=== PATIENT | female | born 1995 | race Caucasian/White ===

== ENCOUNTER 2022-12-28 17:32 | Emergency (ER) | payer SELFPAY ==
--- OUTSIDE RECORDS SUMMARY | 2022-12-28 17:35 | XMS REPORT | Continuity of Care Document ---
:1995 Author Organization [facility] t Address [address] [place] [address] [place] [id number] Care Team Providers Name Role Phone Hedy Tran Primary Care Physician Doctor Unassigned, [employer] [facility] Attending Clinician Unavailable Kip Villaseñor DO Attending Clinician HEDY MARSHALL Attending Clinician Unavailable Hedy Tran Attending Clinician Team, [facility] Health Maintenance Attending Clinician Unavailabl e Payers Payer Name Policy Type Policy Number Effective Date Expiration Date S ource Problems Condition Condition Condition Status Onset Resolution Last Treating Co mments Source Name Details Category Date Date Treatment Clinician Date Fungal Fungal Disease Active Univers rash of rash of 6-14 ity of torso torso 00:00: [address] Irregular Irregular Disease Active Uni vers menstrual menstrual 6-13 ity of cycle cycle 00:00: [address] Obesity Obesity Disease Active Univers (BMI (BMI 6-13 ity of 30-39.9) 30-39.9) 00:00: [address] Allergies, Adverse Reactions, Alerts Allergy Allergy Status Severity Reaction(s) Onset Inactive Treating Comm ents Source Name Type Date Date Clinician NO KNOWN Drug Active Univers ALLERGIE Class ity of S [facility] Social History Social Habit Start Date Stop Date Quantity Comments Source Sexual [facility] Social 2019-10-18 2019-10-18 Univers ity of function 00:00:00 00:00:00 [facility] Alcohol intake 2019-05-16 2019-05-16 0 /d University of 00:00:00 00:00:00 [facility] Tobacco use and 2012-09-06 2012-09-06 Smokeless Universit y of exposure 00:00:00 00:00:00 tobacco non-user [facility] Sex Assigned At [birth year] Universit y of 00:00:00 00:00:00 [facility] Smoking Status Start Date Stop Date Source Never smoked tobacco [facility] Medications Ordered Filled Start Stop Current Ordering Indication Dosage Frequency Signature Comments Components Source Medication Medication Date Date Medication? Clinician (SIG) Name Name bromphenira 2019- 2020- No [id number] 5mL Take 5 mL Univers mine-pseudo 05-15 by mouth 4 i ty of ephedrine-D 00:00: 04:59 (four) [place] as M (BROMFED 00 :00 times Medical DM) 2-30-10 daily as Bran ch mg/5 mL needed for syrup Cold symptoms for up to 10 days. bromphenira 2019-2019- No [id number] 5mL Take 5 mL Univers mine-pseudo 05-15 by mouth 4 i ty of ephedrine-D 00:00: 04:59 (four) [place] as M (BROMFED 00 :00 times Medical DM) 2-30-10 daily as Bran ch mg/5 mL needed for syrup Cold symptoms for up to 10 days. oseltamivir 2020- No [id number] 75mg Take 1 Univers (TAMIFLU) 05-15 capsule by ity of 75 mg 00:00: 04:59 mouth 2 [place] capsule 00 :00 (two) Medical times [place] daily for 5 days. oseltamivir 2019-0 2020- No [id number] 75mg Take 1 Univers (TAMIFLU) 05-15-09 capsule by ity of 75 mg 00:00: 04:59 mouth 2 [place] capsule 00 :00 (two) Medical times [place] daily for 5 days. No known No [facility] No known No [facility] No known No Univers medications ity of [facility] No known No Univers medications ity of [facility] Immunizations Ordered Filled Date Status Comments Source Immunization Name Immunization Name TDAP (ADACEL) 2017-07-13 Completed University of VACCINE 00:00:00 [facility] TDAP (ADACEL) 2017-07-13 Completed University of VACCINE 00:00:00 [facility] TDAP (ADACEL) 2017-07-13 Completed University of VACCINE 00:00:00 [facility] TDAP (ADACEL) 2017-07-13 Completed University of VACCINE 00:00:00 [facility] TDAP (ADACEL) 2017-07-13 Completed University of VACCINE 00:00:00 [facility] TDAP (ADACEL) 2017-07-13 Completed University of VACCINE 00:00:00 [facility] Meningococcal 2014-08-14 Completed University of Vaccine 00:00:00 [facility] Meningococcal 2014-08-14 Completed University of Vaccine 00:00:00 [facility] Meningococcal 2014-08-14 Completed University of Vaccine 00:00:00 [facility] Meningococcal 2014-08-14 Completed University of Vaccine 00:00:00 [facility] Meningococcal 2014-08-14 Completed University of Vaccine 00:00:00 [facility] Meningococcal 2014-08-14 Completed University of Vaccine 00:00:00 [facility] HPV 2010-12-25 Completed University of 00:00:00 [facility] Influenza Virus 2010-12-25 Completed Universit y of Vaccine Nasal 00:00:[address] [facility] HPV 2010-12-25 Completed University of 00:00:00 [facility] Influenza Virus 2010-12-25 Completed Universit y of Vaccine Nasal 00:00:[address] [facility] HPV 2010-12-25 Completed University of 00:00:00 [facility] Influenza Virus 2010-12-25 Completed Universit y of Vaccine Nasal 00:00:[address] [facility] HPV 2010-12-25 Completed University of 00:00:00 [facility] Influenza Virus 2010-12-25 Completed Universit y of Vaccine Nasal 00:00:[address] [facility] HPV 2010-12-25 Completed University of 00:00:00 [facility] Influenza Virus 2010-12-25 Completed Universit y of Vaccine Nasal 00:00:[address] [facility] HPV 2010-12-25 Completed University of 00:00:00 [facility] Influenza Virus 2010-12-25 Completed Universit y of Vaccine Nasal 00:00:00 [facility] Branch HPV 2009-09-23 Completed University of 00:00:00 [facility] Branch HPV 2009-09-23 Completed University of 00:00:00 [facility] HPV 2009-09-23 Completed University of 00:00:00 [facility] HPV 2009-09-23 Completed University of 00:00:00 [facility] HPV 2009-09-23 Completed University of 00:00:00 [facility] HPV 2009-09-23 Completed University of 00:00:00 [facility] HPV 2009-06-20 Completed University of 00:00:00 [facility] HPV 2009-06-20 Completed University of 00:00:00 [facility] HPV 2009-06-20 Completed University of 00:00:00 [facility] HPV 2009-06-20 Completed University of 00:00:00 [facility] HPV 2009-06-20 Completed University of 00:00:00 [facility] HPV 2009-06-20 Completed University of 00:00:00 [facility] H1n1 Vaccine 2009-02-26 Completed University o f 00:00:00 [facility] H1n1 Vaccine 2009-02-26 Completed University o f 00:00:00 [facility] H1n1 Vaccine 2009-02-26 Completed University o f 00:00:00 [facility] H1n1 Vaccine 2009-02-26 Completed University o f 00:00:00 [facility] H1n1 Vaccine 2009-02-26 Completed University o f 00:00:00 [facility] H1n1 Vaccine 2009-02-26 Completed University o f 00:00:00 [facility] Tdap 2008-07-05 Completed University of 00:00:00 [facility] Varicella 2008-07-05 Completed University of (varivax)(chicken 00:00:00 [place] [facility] pox) Branch Meningococcal 2008-07-05 Completed University of Vaccine 00:00:00 [facility] Tdap 2008-07-05 Completed University of 00:00:00 [facility] Varicella 2008-07-05 Completed University of (varivax)(chicken 00:00:00 [place] [facility] pox) Branch Meningococcal 2008-07-05 Completed University of Vaccine 00:00:00 [facility] Tdap 2008-07-05 Completed University of 00:00:00 [facility] Varicella 2008-07-05 Completed University of (varivax)(chicken 00:00:00 [place] [facility] pox) Branch Meningococcal 2008-07-05 Completed University of Vaccine 00:00:00 [facility] TDAP 2008-07-05 Completed University of 00:00:00 [facility] Varicella 2008-07-05 Completed University of (varivax)(chicken 00:00:00 [place] [facility] pox) Branch Meningococcal 2008-07-05 Completed University of Vaccine 00:00:00 [facility] Tdap 2008-07-05 Completed University of 00:00:00 [facility] Varicella 2008-07-05 Completed University of (varivax)(chicken 00:00:00 [place] [facility] pox) Branch Meningococcal 2008-07-05 Completed University of Vaccine 00:00:00 [facility] Tdap 2008-07-05 Completed University of 00:00:00 [facility] Varicella 2008-07-05 Completed University of (varivax)(chicken 00:00:00 [place] [facility] [place] pox) Branch Meningococcal 2008-07-05 Completed University of Vaccine 00:00:00 [facility] Polio (IPV/OPV) 2001-11-23 Completed Universit y of 00:00:00 [facility] DTAP 2001-11-23 Completed University of 00:00:00 [facility] DTAP 2001-11-23 Completed University of 00:00:00 [facility] MMR 2001-11-23 Completed University of 00:00:00 [facility] Polio (IPV/OPV) 2001-11-23 Completed Universit y of 00:00:00 [facility] DTAP 2001-11-23 Completed University of 00:00:00 [facility] MMR 2001-11-23 Completed University of 00:00:00 [facility] Polio (IPV/OPV) 2001-11-23 Completed Universit y of 00:00:00 [facility] DTAP 2001-11-23 Completed University of 00:00:00 [facility] MMR 2001-11-23 Completed University of 00:00:00 [facility] Polio (IPV/OPV) 2001-11-23 Completed Universit y of 00:00:00 [facility] MMR 2001-11-23 Completed University of 00:00:00 [facility] Polio (IPV/OPV) 2001-11-23 Completed Universit y of 00:00:00 [facility] DTAP 2001-11-23 Completed University of 00:00:00 [facility] MMR 2001-11-23 Completed University of 00:00:00 [facility] Polio (IPV/OPV) 2001-11-23 Completed Universit y of 00:00:00 [facility] DTAP 2001-11-23 Completed University of 00:00:00 [facility] MMR 2001-11-23 Completed University of 00:00:00 [facility] Varicella 2000-10-04 Completed University of (varivax)(chicken 00:00:00 [place] [facility] pox) Branch Varicella 2000-10-04 Completed University of (varivax)(chicken 00:00:00 [place] [facility] pox) Branch Varicella 2000-10-04 Completed University of (varivax)(chicken 00:00:00 [place] [facility] pox) Branch Varicella 2000-10-04 Completed University of (varivax)(chicken 00:00:00 [place] [facility] pox) Branch Varicella 2000-10-04 Completed University of (varivax)(chicken 00:00:00 [place] [facility] pox) Branch Varicella 2000-10-04 Completed University of (varivax)(chicken 00:00:00 [place] [facility] pox) Branch Varicella 1999-07-06 Completed University of (varivax)(chicken 00:00:00 [place] [facility] pox) Branch Varicella 1999-07-06 Completed University of (varivax)(chicken 00:00:00 [place] [facility] pox) Branch Varicella 1999-07-06 Completed University of (varivax)(chicken 00:00:00 [place] [facility] pox) Branch Varicella 1999-07-06 Completed University of (varivax)(chicken 00:00:00 [place] [facility] pox) Branch Varicella 1999-07-06 Completed University of (varivax)(chicken 00:00:00 [place] [facility] pox) Branch Varicella 1999-07-06 Completed University of (varivax)(chicken 00:00:00 [place] [facility] pox) Branch Polio (IPV/OPV) 1998-06-03 Completed Universit y of 00:00:00 [facility] DTAP 1998-06-03 Completed University of 00:00:00 [facility] DTAP 1998-06-03 Completed University of 00:00:00 [place] [facility] HIB 4 Dose Schedule 1998-06-03 Completed Unive rsity of 00:00:00 [place] [facility] MMR 1998-06-03 Completed University of 00:00:00 [place] [facility] Polio (IPV/OPV) 1998-06-03 Completed Universit y of 00:00:00 [place] [facility] DTAP 1998-06-03 Completed University of 00:00:00 [facility] HIB 4 Dose Schedule 1998-06-03 Completed Unive rsity of 00:00:00 [place] [facility] MMR 1998-06-03 Completed University of 00:00:00 [place] [facility] Polio (IPV/OPV) 1998-06-03 Completed Universit y of 00:00:00 [facility] HIB 4 Dose Schedule 1998-06-03 Completed Unive rsity of 00:00:00 [facility] DTAP 1998-06-03 Completed University of 00:00:00 [facility] HIB 4 Dose Schedule 1998-06-03 Completed Unive rsity of 00:00:00 [facility] MMR 1998-06-03 Completed University of 00:00:00 [place] [facility] Polio (IPV/OPV) 1998-06-03 Completed Universit y of 00:00:00 [place] [facility] MMR 1998-06-03 Completed University of 00:00:00 [place] [facility] Polio (IPV/OPV) 1998-06-03 Completed Universit y of 00:00:00 [facility] DTAP 1998-06-03 Completed University of 00:00:00 [facility] HIB 4 Dose Schedule 1998-06-03 Completed Unive rsity of 00:00:00 [facility] MMR 1998-06-03 Completed University of 00:00:00 [place] [facility] Polio (IPV/OPV) 1998-06-03 Completed Universit y of 00:00:00 [place] [facility] DTAP 1998-06-03 Completed University of 00:00:00 [facility] HIB 4 Dose Schedule 1998-06-03 Completed Unive rsity of 00:00:00 [place] [facility] MMR 1998-06-03 Completed University of 00:00:00 [place] [facility] DTAP 1998-02-19 Completed University of 00:00:00 [place] [facility] DTAP 1998-02-19 Completed University of 00:00:00 [facility] HIB 4 Dose Schedule 1998-02-19 Completed Unive rsity of 00:00:00 [place] [facility] Hep B, Adol or Pedi 1998-02-19 Completed Unive rsity of Dosage 00:00:00 [place] [facility] DTAP 1998-02-19 Completed University of 00:00:00 [place] [facility] HIB 4 Dose Schedule 1998-02-19 Completed Unive rsity of 00:00:00 [place] [facility] Hep B, Adol or Pedi 1998-02-19 Completed Unive rsity of Dosage 00:00:00 [place] [facility] HIB 4 Dose Schedule 1998-02-19 Completed Unive rsity of 00:00:00 [place] [facility] DTAP 1998-02-19 Completed University of 00:00:00 [place] [facility] HIB 4 Dose Schedule 1998-02-19 Completed Unive rsity of 00:00:00 [place] [facility] Hep B, Adol or Pedi 1998-02-19 Completed Unive rsity of Dosage 00:00:00 [facility] Hep B, Adol or Pedi 1998-02-19 Completed Unive rsity of Dosage 00:00:00 [facility] DTAP 1998-02-19 Completed University of 00:00:00 [facility] HIB 4 Dose Schedule 1998-02-19 Completed Unive rsity of 00:00:00 [place] [facility] Hep B, Adol or Pedi 1998-02-19 Completed Unive rsity of Dosage 00:00:00 [facility] DTAP 1998-02-19 Completed University of 00:00:00 [facility] HIB 4 Dose Schedule 1998-02-19 Completed Unive rsity of 00:00:00 [facility] Hep B, Adol or Pedi 1998-02-19 Completed Unive rsity of Dosage 00:00:00 [facility] Polio (IPV/OPV) 1997 Completed Universit y of 00:00:00 [facility] DTAP 1997 Completed University of 00:00:00 [place] [facility] DTAP 1997 Completed University of 00:00:00 [place] [facility] HIB 4 Dose Schedule 1997 Completed Unive rsity of 00:00:00 [facility] Polio (IPV/OPV) 1997 Completed Universit y of 00:00:00 [facility] DTAP 1997 Completed University of 00:00:00 [place] [facility] HIB 4 Dose Schedule 1997 Completed Unive rsity of 00:00:00 [facility] HIB 4 Dose Schedule 1997 Completed Unive rsity of 00:00:00 [place] [facility] Polio (IPV/OPV) 1997 Completed Universit y of 00:00:00 [facility] DTAP 1997 Completed University of 00:00:00 [facility] HIB 4 Dose Schedule 1997 Completed Unive rsity of 00:00:00 [facility] Polio (IPV/OPV) 1997 Completed Universit y of 00:00:00 [place] [facility] Polio (IPV/OPV) 1997 Completed Universit y of 00:00:00 [facility] DTAP 1997 Completed University of 00:00:00 [facility] HIB 4 Dose Schedule 1997 Completed Unive rsity of 00:00:00 [facility] Polio (IPV/OPV) 1997 Completed Universit y of 00:00:00 [facility] DTAP 1997 Completed University of 00:00:00 [facility] HIB 4 Dose Schedule 1997 Completed Unive rsity of 00:00:00 [facility] DTAP 1997 Completed University of 00:00:00 [facility] Polio (IPV/OPV) 1997 Completed Universit y of 00:00:00 [facility] DTAP 1997 Completed University of 00:00:00 [facility] HIB 4 Dose Schedule 1997 Completed Unive rsity of 00:00:00 [facility] Hep B, Adol or Pedi 1997 Completed Unive rsity of Dosage 00:00:00 [facility] Polio (IPV/OPV) 1997 Completed Universit y of 00:00:00 [facility] HIB 4 Dose Schedule 1997 Completed Unive rsity of 00:00:00 [facility] DTAP 1997 Completed University of 00:00:00 [facility] HIB 4 Dose Schedule 1997 Completed Unive rsity of 00:00:00 [facility] Hep B, Adol or Pedi 1997 Completed Unive rsity of Dosage 00:00:00 [facility] Polio (IPV/OPV) 1997 Completed Universit y of 00:00:00 [facility] DTAP 1997 Completed University of 00:00:00 [facility] HIB 4 Dose Schedule 1997 Completed Unive rsity of 00:00:00 [facility] Hep B, Adol or Pedi 1997 Completed Unive rsity of Dosage 00:00:00 [facility] Hep B, Adol or Pedi 1997 Completed Unive rsity of Dosage 00:00:00 [facility] Polio (IPV/OPV) 1997 Completed Universit y of 00:00:00 [facility] Polio (IPV/OPV) 1997 Completed Universit y of 00:00:00 [facility] DTAP 1997 Completed University of 00:00:00 [facility] HIB 4 Dose Schedule 1997 Completed Unive rsity of 00:00:00 [facility] Hep B, Adol or Pedi 1997 Completed Unive rsity of Dosage 00:00:00 [facility] Polio (IPV/OPV) 1997 Completed Universit y of 00:00:00 [facility] DTAP 1997 Completed University of 00:00:00 [facility] HIB 4 Dose Schedule 1997 Completed Unive rsity of 00:00:00 [facility] Hep B, Adol or Pedi 1997 Completed Unive rsity of Dosage 00:00:00 [facility] Hep B, Adol or Pedi 1997 Completed Unive rsity of Dosage 00:00:00 [facility] Hep B, Adol or Pedi 1997 Completed Unive rsity of Dosage 00:00:00 [facility] Hep B, Adol or Pedi 1997 Completed Unive rsity of Dosage 00:00:00 [facility] Hep B, Adol or Pedi 1997 Completed Unive rsity of Dosage 00:00:00 [facility] Hep B, Adol or Pedi 1997 Completed Unive rsity of Dosage 00:00:00 [facility] Hep B, Adol or Pedi 1997 Completed Unive rsity of Dosage 00:00:00 [facility] DTAP Unknown Completed University of [facility] DTAP Unknown Completed [facility] DTAP Unknown Completed [facility] DTAP Unknown Completed [facility] DTAP Unknown Completed [facility] HIB 4 Dose Schedule Unknown [facility] D[facility] Unknown Completed [facility] HIB 4 Dose Schedule Unknown [facility] D[facility] Hep B, Adol or Pedi Unknown Completed Unive rsity of Dosage [facility] Hep B, Adol or Pedi Unknown Completed Unive rsity of Dosage [facility] Hep B, Adol or Pedi Unknown Completed Unive rsity [facility] HPV Unknown Completed [facility] HPV Unknown Completed [facility] HPV Unknown Completed [facility] Meningococcal Unknown Completed [facility] Meningococcal Unknown Completed [facility] MMR Unknown Completed [facility] MMR Unknown Completed [facility] Polio (IPV/OPV) Unknown Completed [facility] Polio (IPV/OPV) Unknown Completed [facility] Polio (IPV/OPV) Unknown Completed [facility] Polio (IPV/OPV) Unknown Completed [facility] TDAP Unknown Completed [facility] Varicella Unknown Completed [facility] (varivax)(chicken [place] [facility] pox) Branch Varicella Unknown Completed [facility] (varivax)(chicken [place] [facility] [place] pox) [place] Varicella Unknown Completed [facility] (varivax)(chicken [place] [facility] [place] pox) [place] Influenza Virus Unknown Completed [facility] Vaccine Nasal [facility] H1n1 Vaccine Unknown Completed [facility] TDAP (ADACEL) Unknown Completed [facility] Vital Signs Vital Name Observation Time Observation Value Comments Source Systolic blood 2019-05-16 16:34:00 131 mm[Hg] Univer sity of pressure [facility] Diastolic blood 2019-05-16 16:34:00 86 mm[Hg] Unive rsity of pressure [facility] Heart rate 2019-05-16 16:34:00 110 /min [facility] Body temperature 2019-05-16 16:34:00 36.5 [place] Univ ersity [facility] Body height 2019-05-16 16:34:00 175.3 cm Universi ty [facility] Body weight 2019-05-16 16:34:00 118.842 kg Universi ty [facility] BMI 2019-05-16 16:34:00 38.69 kg/m2 Universi ty [facility] Oxygen saturation in 2019-05-16 16:34:00 94 /min [facility] Arterial blood by [facility] Pulse oximetry [place] Procedures Procedure Date / Time Performed Performing Clinician Vansesa geraldo ASSIGNMENT OF BENEFITS 2019-05-16 16:24:58 Doctor Unassigned, Yamel [facility] POCT FLU A AND B 2019-05-16 00:00:00 Hedy [facility] Encounters Start End Encounter Admission Attending Care Care Encounter Source Date/Time Date/Time Type Type Clinicians Facility Department ID 2021-02-25 2021-02-25 Patient Doctor MK [id number] Univers 00:00:00 00:00:00 Secure Msg Unassigned, MARE [id number] ity of [facility] [id number] [place] as [phone] [facility] 019 Branch 2020-06-04 2020-06-04 Patient BRIONNA Villaseñor [id number] Univers 00:00:00 00:00:00 Outreach Kip PRIMARY [id number] i ty of [facility] [id number] [phone] Mo michael [address] [place] 2019-08-03 2019-08-03 Outpatient R RANDY [facility] [id number] Univers 09:00:00 09:00:00 HEDY batesy of [facility] 2019-08-02 2019-08-02 Telephone Randy RICANDIDA [id number] Univers 00:00:00 00:00:00 Hedy [facility] [id number] it y of [place] [id number] [place] as Professio [phone] Mo dical nal 0[address] Branch [address] 2019-05-16 2019-05-16 Office Randy RICANDIDA [id number] Univers 10:27:29 10:52:25 Visit Hedy [facility] [id number] it y of [place] [id number] [place] as Latasha [phone] Mo dical formerly [facility] 044 [place] Office [address] 2019-05-16 2019-05-16 Outpatient R RANDY, [facility] [id number] Univers 10:20:00 10:20:00 HEDY ity of [facility] 2019-05-16 2019-05-16 Orders Doctor MK [id number] Univers 00:00:00 00:00:00 Only Unassigned, MARE [id number] ity of [facility] Head [facility] [id number] [place] as [phone] [address] 2018-10-18 2018-10-18 Telephone Team, [facility] MK [id number] [facility] 00:00:00 00:00:00 Health [facility] [id number] it y of [facility] [id number] [place] [phone] [address] Results Test Description Test Time Test Comments Results Result Comments Source POCT FLU A AND B (MOLECULAR) 2019-05-16 16:49:00 Test Item Value Reference Range Interpretation Comme nts POCT INFLUENZA A (test code = 3840) neg Negative - Negativ e POCT INFLUENZA B (test code = 3841) pos Negative - Negativ e [facility]2019-05-16 16:49:00 Test Item Value Reference Range Interpretation Comments POCT INFLUENZA A (test code = 3840) neg Negative - Negativ e POCT INFLUENZA B (test code = 3841) pos Negative - Negativ e [facility]
[2022-12-28] MEDS ORDERED: ONDANSETRON 4 MG (ODT) TAB ONE (18:46)
[2022-12-28 20:03] LABS: Absolute Lymphocytes (CBC) 1.6 K/uL (0.7-4.9); Hematocrit 43.7 % (36.0-45.0); Lymphocytes % 13.3 % (15.3-44.8); MCV 88.9 fL (80-100); MPV 8.2 fL (7.6-11.3); Platelets 284 thou/uL (152-406); RBC Red Blood Cell Count 4.92 M/uL (3.86-4.86)
[2022-12-28 20:07] LABS: Specific Gravity > 1.030 (1.005-1.030)
[2022-12-28 20:09] LABS: Urine Bacteria <20 /HPF (<20); Urine Crystals Unidentified Few /HPF (None Seen); Urine Mucus 2+ /HPF (None Seen); Urine RBC <5 /HPF (None Seen)
[2022-12-28] MEDS ORDERED: NA CHLORIDE 0.9% 1,000 ML ONE (20:09)
[2022-12-28] MEDS ORDERED: FAMOTIDINE 20 MG/2 ML VIAL IV ONE (20:09)
[2022-12-28 20:19] LABS: Albumin 3.6 g/dL (3.4-5.0); Bilirubin Total 0.8 mg/dL (0.2-1.0); Potassium 5.6 mEq/L (3.5-5.1); Protein, Total 8.4 g/dL (6.4-8.2)
--- NOTE | 2022-12-28 21:14 | RAD REPORT ---
EXAM DESCRIPTION: US - Abdomen Exam Limited - 12/28/2022 9:07 pm CLINICAL HISTORY: NAUSEA / VOMITING COMPARISON: No comparisons FINDINGS: The gallbladder demonstrates no gallstones. No pericholecystic fluid or gallbladder wall t hickening. The common bile duct is normal measuring 3 mm. The liver demonstrates no findings of intrahepatic biliary dilatation. IMPRESSION: Unremarkable examination.
--- NOTE | 2022-12-28 21:31 | ER ---
Nurse's Notes [facility] Name: Pilar Yang Age: 27 yrs Sex: Female : 1995 Arrival Date: 12/28/2022 Time: 17:32 Bed 2 Private MD: Diagnosis: Nausea with vomiting, unspecified Presentation: 12/28 18:04 Chief complaint: Patient states: Vomiting and diarrhea since yesterday, unable to keep nj1 anything down. Denies fever, abdominal pain. Coronavirus screen: Vaccine status: Patient reports receiving the 2nd dose of the covid vaccine. Ebola Screen: Patient denies travel to an Ebola-affected area in the 21 days before illness onset. Initial Sepsis Screen: Does the patient meet any 2 criteria? HR > 90 bpm. No. Patient's initial sepsis screen is negative. Does the patient have a suspected source of infection? No. Patient's initial sepsis screen is negative. Risk Assessment: Do you want to hurt yourself or someone else? Patient reports no desire to harm self or others. Onset of symptoms was December 27, 2022. 18:04 Method Of Arrival: Ambulatory [facility] 18:04 Acuity: SARAH 3 nj1 Triage Assessment: 20:06 General: Appears in no apparent distress. comfortable, Behavior is calm, cooperative. cm10 Pain: Denies pain. EENT: No deficits noted. No signs and/or symptoms were reported regarding the EENT system. Neuro: No deficits noted. Bhatt Agitation-Sedation Scale (RASS): 0 - Alert and Calm Level of Consciousness is awake, alert, obeys commands, Oriented to person, place, time, situation. Cardiovascular: No deficits noted. Patient's skin is warm and dry. Respiratory: No deficits noted. Airway is patent Respiratory effort is even, unlabored, Respiratory pattern is regular, symmetrical. GI: Reports nausea, vomiting. : No deficits noted. No signs and/or symptoms were reported regarding the genitourinary system. Derm: No deficits noted. No signs and/or symptoms reported regarding the dermatologic system. Skin is intact, Skin is pink, warm \T\ dry. Musculoskeletal: No deficits noted. No signs and/or symptoms reported regarding the musculoskeletal system. Range of motion: intact in all extremities. 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 - Social history:: Smoking status: Patient denies any tobacco usage or history of. Screenin:07 [facility] ED Fall Risk Assessment (Adult) History of falling in the last 3 months, cm10 including since admission No falls in past 3 months (0 pts) Confusion or Disorientation No (0 pts) Intoxicated or Sedated No (0 pts) Impaired Gait No (0 pts) Mobility Assist Device Used No (0 pt) Altered Elimination No (0 pt) Score/Fall Risk Level 0 - 2 = Low Risk Oriented to surroundings, Maintained a safe environment, Hourly rounding (assess needs \T\ fall precautionary measures) done. Abuse screen: Denies threats or abuse. Denies injuries from another. Nutritional screening: No deficits noted. Tuberculosis screening: No symptoms or risk factors identified. Assessment: 20:09 Reassessment: See triage assessment. cm10 21:48 Reassessment: Patient appears in no apparent distress at this time. Patient is alert, cm10 oriented x 3, equal unlabored respirations, skin warm/dry/pink. Patient states feeling better. Patient states symptoms have improved. Vital Signs: 18:04 BP 146 / 102; Pulse 114; Resp 20; Temp 98(O); Pulse Ox 100% ; Weight 117.93 kg; Height nj1 5 ft. 8 in. ; Pain 0/10; 20:00 BP 138 / 88; Pulse 92; Resp 16; Pulse Ox 100% ; cm10 20:05 BP 133 / 103; Pulse 92; Resp 16 S; Pulse Ox 100% on R/A; cm10 21:30 BP 119 / 76; Pulse 99; Resp 18; Pulse Ox 100% on R/A; cm10 18:04 Body Mass Index 39.53 (117.93 kg, 172.72 cm) nj1 18:04 Pain Scale: Adult [facility] ED Course: 17:34 Patient arrived in ED. mr 17:34 Rohan Loredo PA is PHCP. cp 17:34 Trever Dunbar DO is Attending Physician. cp 18:06 Triage completed. hi1 18:06 Arm band placed on right wrist. hi1 19:52 Jennyfer Gale, RN is Primary Nurse. cm10 19:52 CBC with Diff Sent. cm10 19:53 CMP Sent. cm10 19:53 Lipase Sent. cm10 19:53 PREGU Sent. cm10 19:53 Urine Microscopic Only Sent. cm10 19:53 Initial lab(s) drawn, by or, sent to lab. Urine collected: clean catch specimen, clear. cm10 Inserted saline lock: 20 gauge in left antecubital area, using aseptic technique. Blood collected. 20:07 Patient has correct armband on for positive identification. Bed in low position. Call cm10 light in reach. Side rails up X2. Provided Education on: ER process and procedures. . Pulse ox on. NIBP on. 20:08 Door closed. Noise minimized. Warm blanket given. cm10 20:08 Patient maintains SpO2 saturation greater than 95% on room air. cm10 21:09 US Abdomen Limited: gallbladder In Process Unspecified. EDMS 21:47 No provider procedures requiring assistance completed. IV discontinued, intact, cm10 bleeding controlled, No redness/swelling at site. Pressure dressing applied. Administered Medications: 18:37 Drug: Ondansetron PO 4 mg PO once Route: PO; cm10 21:43 Follow up: Response: No adverse reaction cm10 20:05 Drug: Famotidine IVP 20 mg IVP once; dilute with 10 mL 0.9% NaCl; give over 2 minutes cm10 Route: IVP; Site: left antecubital; 21:43 Follow up: Response: No adverse reaction cm10 21:43 Follow up: Response: No adverse reaction cm10 20:05 Drug: NS 0.9% IV 1000 ml IV at 1 bolus Per protocol; 1000 mL bolus Route: IV; Rate: 1 cm10 bolus; Site: left antecubital; 21:43 Follow up: Response: No adverse reaction; IV Status: Completed infusion; IV Intake: cm10 1000ml 21:43 Follow up: Response: No adverse reaction; IV Status: Completed infusion; IV Intake: cm10 1000ml Medication: 20:07 VIS not applicable for this client. cm10 Intake: 21:43 IV: 1000ml; Total: 1000ml. cm10 21:43 IV: 1000ml; Total: 2000ml. cm10 Outcome: 21:31 Discharge ordered by . cp 21:47 Discharged to home ambulatory, with significant other, cm10 21:47 Condition: good 21:47 Discharge instructions given to patient, Instructed on discharge instructions, follow up and referral plans. medication usage, Demonstrated understanding of instructions, follow-up care, medications, Prescriptions given X 2, 21:48 Patient left the ED. cm10 Signatures: Dispatcher [employer] EDAK Gila alvarez, Reg Reg Rohan Loredo, Ketty Kern cp, RN RN nj1 Jennyfer Gale RN RN cm10
--- NOTE | 2022-12-28 21:32 | EDPHYS ---
Physician Documentation [facility] Name: Pilar Yang Age: 27 yrs Sex: Female : 1995 Arrival Date: 12/28/2022 Time: 17:32 Bed 2 Private MD: ED Physician Trever Dunbar HPI: 12/28 18:15 This 27 yrs old Female presents to ER via Ambulatory with complaints of Vomiting. cp 18:15 The patient presents to the emergency department with nausea, that is moderate, cp vomiting, that is intermittent, diarrhea, that is intermittent. Onset: The symptoms/episode began/occurred yesterday. Possible causes: unknown. Associated signs and symptoms: Pertinent negatives: abdominal pain, constipation, fever, GI bleeding. Severity of symptoms: in the emergency department the symptoms are unchanged despite home interventions. 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 - Social history:: Smoking status: Patient denies any tobacco usage or history of. ROS: 18:20 Constitutional: Positive for poor PO intake, Negative for body aches, chills, fever, cp 18:20 Eyes: Negative for injury, pain, redness, and discharge, cp 18:20 ENT: Negative for drainage from ear(s), ear pain, sore throat, difficulty swallowing, difficulty handling secretions, 18:20 Cardiovascular: Negative for chest pain, 18:20 Respiratory: Negative for cough, shortness of breath, wheezing, 18:20 Abdomen/GI: Positive for nausea and vomiting, diarrhea, Negative for abdominal pain, constipation, hematemesis, black/tarry stool, rectal bleeding, 18:20 Neuro: Negative for altered mental status, dizziness, headache, weakness, 18:20 All other systems are negative, Exam: 18:25 Constitutional: The patient appears in no acute distress, alert, awake, non-toxic, well cp developed, well nourished, obese, 18:25 Head/Face: Normocephalic, atraumatic. cp 18:25 Eyes: Periorbital structures: appear normal, Conjunctiva: normal, no exudate, no injection, Sclera: no appreciated abnormality, Lids and lashes: appear normal, bilaterally, 18:25 ENT: External ear(s): are unremarkable, Nose: is normal, Mouth: Lips: moist, Oral mucosa: pink and intact, moist, Posterior pharynx: is normal, airway is patent, no erythema, no exudate, 18:25 Chest/axilla: Inspection: normal, 18:25 Cardiovascular: Rate: tachycardic, Rhythm: regular, 18:25 Respiratory: the patient does not display signs of respiratory distress, Respirations: normal, no use of accessory muscles, no retractions, labored breathing, is not present, Breath sounds: are clear throughout, no decreased breath sounds, no stridor, no wheezing, 18:25 Abdomen/GI: Inspection: abdomen appears normal, Bowel sounds: active, all quadrants, Palpation: abdomen is soft and non-tender, in all quadrants, 18:25 Back: CVA tenderness, is absent, Vital Signs: 18:04 BP 146 / 102; Pulse 114; Resp 20; Temp 98(O); Pulse Ox 100% ; Weight 117.93 kg; Height nj1 5 ft. 8 in. ; Pain 0/10; 20:00 BP 138 / 88; Pulse 92; Resp 16; Pulse Ox 100% ; cm10 20:05 BP 133 / 103; Pulse 92; Resp 16 S; Pulse Ox 100% on R/A; cm10 21:30 BP 119 / 76; Pulse 99; Resp 18; Pulse Ox 100% on R/A; cm10 18:04 Body Mass Index 39.53 (117.93 kg, 172.72 cm) nj1 18:04 Pain Scale: Adult nj1 MDM: 18:10 Patient medically screened. 19:00 Differential diagnosis: gastritis, cholecystitis, pancreatitis, appendicitis, viral cp gastroenteritis, gastroenteritis. 21:30 Data reviewed: vital signs, nurses notes, lab test result(s), radiologic studies, cp ultrasound. 21:30 I considered the following discharge prescriptions or medication management in the emergency department Medications were administered in the Emergency Department. See MAR. Counseling: I had a detailed discussion with the patient and/or guardian regarding the historical points, exam findings, and any diagnostic results supporting the discharge/admit diagnosis, lab results, radiology results, to return to the emergency department if symptoms worsen or persist or if there are any questions or concerns that arise at home. 12/28 18:11 Order name: Urine Microscopic Only; Complete Time: 20:19 cp 12/28 18:11 Order name: PREGU; Complete Time: 20:19 cp 12/28 18:48 Order name: CBC with Diff; Complete Time: 20:19 cp 12/28 18:48 Order name: CMP; Complete Time: 20:21 cp 12/28 20:21 Interpretation: Normal except: NA 133; K 5.6; AST 45. cp 12/28 18:48 Order name: Lipase; Complete Time: 20:21 cp 12/28 20:20 Order name: US Abdomen Limited: gallbladder; Complete Time: 21:25 cp 12/28 18:48 Order name: IV Saline Lock; Complete Time: 19:52 cp 12/28 18:48 Order name: Labs collected and sent; Complete Time: 19:52 cp 12/28 21:25 Order name: PO challenge; Complete Time: 21:47 cp Administered Medications: 18:37 Drug: Ondansetron PO 4 mg PO once Route: PO; cm10 21:43 Follow up: Response: No adverse reaction cm10 20:05 Drug: Famotidine IVP 20 mg IVP once; dilute with 10 mL 0.9% NaCl; give over 2 minutes cm10 Route: IVP; Site: left antecubital; 21:43 Follow up: Response: No adverse reaction cm10 21:43 Follow up: Response: No adverse reaction cm10 20:05 Drug: NS 0.9% IV 1000 ml IV at 1 bolus Per protocol; 1000 mL bolus Route: IV; Rate: 1 cm10 bolus; Site: left antecubital; 21:43 Follow up: Response: No adverse reaction; IV Status: Completed infusion; IV Intake: cm10 1000ml 21:43 Follow up: Response: No adverse reaction; IV Status: Completed infusion; IV Intake: cm10 1000ml Disposition: 21:14 I was immediately available on-site in the Emergency Department for consultation in the ms3 care of the patient. Disposition Summary: 12/28/22 21:31 Discharge Ordered Notes: Location: Home cp Problem: new cp Symptoms: have improved cp Condition: Stable cp Diagnosis - Nausea with vomiting, unspecified cp Followup: cp - With: Emergency Department - When: As needed - Reason: Worsening of condition Discharge Instructions: - Discharge Summary Sheet cp - Nausea and Vomiting, Adult cp Forms: - Medication Reconciliation Form cp - Thank You Letter cp - Antibiotic Education cp - Prescription Opioid Use cp - Patient Portal Instructions cp - Leadership Thank You Letter cp Prescriptions: - Pepcid 20 mg Oral Tablet - take 1 tablet ORAL route every 12 hours for 10 days; 20 tablet; Refills: 0, cp Product Selection Permitted - Zofran 4 mg Oral Tablet - take 1 tablet ORAL route every 12 hours As needed; 20 tablet; Refills: 0, cp Product Selection Permitted Addendum: 12/29/2022 22:02 I was immediately available on-site in the Emergency Department for consultation in the m s3 care of the patient. Signatures: Dispatcher [employer] EDMS Rohan Loredo PA PA cp Sims, Marcus, DO DO ms3 Ketty Lu RN RN nj1 Jennyfer Gale RN RN cm10
[2022-12-28 22:18] VITALS: TEMP 98; O2SAT 100
[2022-12-28 22:31] VITALS: BP 119/76
== END 2022-12-28 21:48 | disposition home or self-care (01) ==
LOC: ER 17:32
DX: R11.2 Nausea with vomiting, unspecified (principal)
CPT/HCPCS: 36415; 76705; 80053; 81015; 81025; 83690; 85025; 96361; 96374; 99285; J7030; Q0162